=== PATIENT | male | born 1960 | race Caucasian/White ===

== ENCOUNTER 2024-07-28 14:32 | Emergency (ER) | payer OTHER, SELFPAY ==
[2024-07-28] VITALS (9 sets, daily range): BP systolic 103–134; BP diastolic 63–76; PULSE 54–57; RESP 15–22; TEMP 36.4; O2SAT 98–100; BMI 21.9
--- NOTE | 2024-07-28 14:49 | DI.RAD.S_ITS ---
PROCEDURE: XR CHEST 1V INDICATIONS: chest pain TECHNIQUE: One view of the chest was acquired. COMPARISON: None. FINDINGS: Surgical changes and devices: Post median sternotomy and CABG. Lungs and pleura: Lungs are clear. No pleural effusions or pneumothorax. Mediastinum: Mediastinal contours appear normal. Heart size is normal. Bones and chest wall: No suspicious bony lesions. Overlying soft tissues appear unremarkable. IMPRESSION: No acute cardiopulmonary abnormality is seen. Dictated by: Augustine Chau M.D. on 07/28/2024 at 15:27 Approved by: Augustine Chau M.D. on 07/28/2024 at 15:29
--- NOTE | 2024-07-28 14:50 | EKG_ITS ---
[address] [address] Test Date: 2024-07-28 Pat Name: Ryan Britton Department: Room: Gender: Male [employer] Runner: PHILIP : 1960 Requested By: Order Number: [id number] Reading MD: Param Mccall Measurements Intervals [place] Rate: 58 P: 47 NE: 166 QRS: -20 QRSD: 100 T: 24 QT: 408 QTc: 400 Interpretive Statements Sinus bradycardia Minimal voltage criteria for LVH, may be normal variant ( [place] product ) Electronically Signed On 07-29-2024 9:26:20 PST by Param Mcclal
[2024-07-28 15:07] LABS: Add Manual Diff / Slide Review NO; Basophils Absolute Auto 0 /uL (0-100); Basophils Percent Auto 0.2 % (0-2); Eosinophils Absolute Auto 0 /uL (0-450); Eosinophils Percent Auto 0.3 % (2-4); Hematocrit 43.4 % (41-53); Hemoglobin 14.2 g/dL (13.5-17.5); Lymphocytes Absolute Auto 900 /uL (1100-4500); Lymphocytes Percent Auto 12.9 % (25-40); Mean Corpuscular HGB Conc 32.6 % (30-36); Mean Corpuscular Hemoglobin 28.9 PG (26-34); Mean Corpuscular Volume 88.6 fL (80-100); Monocytes Absolute Auto 300 /uL (0-900); Monocytes Percent Auto 4.4 % (3-14); Neutrophils Absolute Auto 6000 /uL (1500-7000); Neutrophils Percent Auto 82.2 % (50-75); Platelet Count 178 X10^3/uL (150-400); Red Blood Cell Count 4.89 X10^6/uL (4.5-5.9); Red Cell Distribution Width 13.7 % (11.6-14.8); White Blood Cell Count 7.3 X10^3/uL (4.5-11.0)
[2024-07-28 15:14] LABS: INR 0.9 (0.9-1.3); Prothrombin Time 10.6 SECONDS (9.4-12.5)
[2024-07-28 15:17] LABS: PTT Partial Thromboplastin Tim 29 SECONDS (25.1-36.5)
[2024-07-28 15:18] LABS: Alanine Aminotransferase 18 IU/L (<50); Albumin 4.6 g/dL (3.5-5.0); Albumin Globulin Ratio 1.8 (1.0-2.8); Alkaline Phosphatase 57 U/L (38-126); Aspartate Aminotransferase 32 IU/L (17-59); BUN Creatinine Ratio 18.1 (6-22); Bilirubin Total 0.5 mg/dL (0.2-1.3); Blood Urea Nitrogen 31 mg/dL (9-20); Calcium 9.2 mg/dL (8.4-10.2); Carbon Dioxide 27 mmol/L (22-32); Chloride 104 mmol/L (98-107); Creatine Kinase 113 U/L (55-170); Estimated Glomerular Filt Rate 45 mL/min (>60); Globulin 2.5 g/dL (1.7-4.1); Glucose 94 mg/dL (80-110); HEMOLYSIS < 15 (0-50); Lipase 241 U/L (23-300); Magnesium 2.2 mg/dL (1.6-2.3); Potassium 4.6 mmol/L (3.4-5.1); Sodium 137 mmol/L (137-145); Total Protein 7.1 g/dL (6.3-8.2)
[2024-07-28 15:30] LABS: NT-proBNP (BNP-Adult 18+) 188 pg/mL (<125); Troponin I < 0.012 ng/mL (0.01-0.034)
--- NOTE | 2024-07-28 16:58 | EKG_ITS ---
[address] [address] Test Date: 2024-07-28 Pat Name: Ryan Neskowin Department: 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
[2024-07-28 17:34] LABS: Troponin I < 0.012 ng/mL (0.01-0.034)
--- NOTE | 2024-07-28 18:01 | ED.ARRPALP ---
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 Patient states he has had palpitations on and off in the past but has had them more frequently in the last several days describes it as a flutter. States sometimes when it occurs he has a little bit of chest pressure just site and in her left arm. He denies any fevers or chills, no cold cough or congestion. Denies any chest pain or pressure currently. No shortness of breath. Denies any diaphoresis. No nausea or vomiting. No swelling of extremities. No issues with bowel movements or urination. He does note his left arm sometimes has discomfort where his prior fistula was not placed. Patient does follow up with Cardiology in [place] where he lives he is on mycophenolate, aspirin, losartan, metoprolol, rosuvastatin, MiraLax and recently started alendronate 2 weeks ago. States he has been taking all his medications regularly. He was visiting the area until September. Notes that he had an allergy to heparin would cause an itch so they would use alternatives to heparin when he was having dialysis. No tobacco, occasional alcohol, no recreational drugs. [facility] in [place] is where patient receives his care. Related Data Allergies Allergy/AdvReac Type Severity Reaction Status Date / Time heparin AdvReac Verified 07/28/24 14:44 Review of Systems Review of Systems ROS Unobtainable: All systems reviewed & are unremarkable except as noted in HPI and below Patient History Social History Smoking Status: Never smoker Smoking Status: Never smoker alcohol intake frequency: other Substance Use Type: does not use Exam Narrative Exam Narrative: GENERAL: Alert and oriented x three, well-appearing male in mild distress HEENT: Head normocephalic, atraumatic, EOMI, pupils reactive, face symmetric, moist mucous membranes NECK: Supple, full range of motion CARDIOVASCULAR: Regular rate and rhythm without murmurs, rubs or gallops. No edema bilateral upper or lower extremities. RESPIRATORY: Breath sounds equal bilaterally, no wheezes rales or rhonchi. ABDOMEN: Soft, nontender. Normoactive bowel sounds all 4 quadrants. No guarding or rebound, rigidity, no mass : No CVA tenderness EXTREMITIES: Normal range of motion, no clubbing or edema. Neurovascularly intact NEUROLOGICAL: Cranial nerves II through XII grossly intact. Moving all extremities SKIN: Warm, dry, no petechiae, no rashes or lesions. Initial Vital Signs Initial Vital Signs: Vital Signs Temperature 97.5 F L 07/28/24 14:44 Pulse Rate 57 L 07/28/24 14:44 Respiratory Rate 18 07/28/24 14:44 Blood Pressure 134/76 07/28/24 14:44 Pulse Oximetry 100 07/28/24 14:44 Oxygen Delivery Method Room Air 07/28/24 14:44 Course Orders Ordered: Discontinued Medications Aspirin (Aspirin 81 Mg Chew Tab) 324 mg PO NOW ONE Stop: 07/28/24 14:50 Last Admin: 07/28/24 18:40 Dose: Not Given Documented By: SUNITHA Vital Signs Vital signs: Vital Signs - 8 hr 07/28/24 14:44 07/28/24 15:31 07/28/24 15:32 Temperature 97.5 F L Pulse Rate 57 L 55 L Respiratory Rate 18 22 Blood Pressure 134/76 112/64 Pulse Oximetry 100 99 Oxygen Delivery Method Room Air 07/28/24 15:32 07/28/24 16:00 07/28/24 16:00 Temperature Pulse Rate 54 L 57 L Respiratory Rate 20 15 Blood Pressure 109/65 Pulse Oximetry 100 99 Oxygen Delivery Method 07/28/24 16:30 07/28/24 16:30 Temperature Pulse Rate 56 L Respiratory Rate 17 Blood Pressure 103/63 Pulse Oximetry 99 Oxygen Delivery Method Room Air MDM - Arrhythmia/Palpitations Lab Data 07/28/24 14:55 07/28/24 14:55 Labs: Lab Results 07/28/24 07/28/24 Range/Units 14:55 16:55 WBC 7.3 (4.5-11.0) X10^3/uL RBC 4.89 (4.5-5.9) X10^6/uL Hgb 14.2 (13.5-17.5) g/dL Hct 43.4 (41-53) % MCV 88.6 (80-100) fL MCH 28.9 (26-34) PG MCHC 32.6 (30-36) % RDW 13.7 (11.6-14.8) % Plt Count 178 (150-400) X10^3/uL Neut % (Auto) 82.2 H (50-75) % Lymph % (Auto) 12.9 L (25-40) % Swisher % (Auto) 4.4 (3-14) % Eos % (Auto) 0.3 L (2-4) % Baso % (Auto) 0.2 (0-2) % Neut # (Auto) 6000 (3704-1070) /uL Lymph # (Auto) 900 L (3076-2968) /uL Swisher # (Auto) 300 (0-900) /uL Eos # (Auto) 0 (0-450) /uL Baso # (Auto) 0 (0-100) /uL PT 10.6 (9.4-12.5) SECONDS INR 0.9 (0.9-1.3) APTT 29 (25.1-36.5) SECONDS Sodium 137 (137-145) mmol/L Potassium 4.6 (3.4-5.1) mmol/L Chloride 104 (98-107) mmol/L Carbon Dioxide 27 (22-32) mmol/L BUN 31 H (9-20) mg/dL Creatinine 1.71 H (0.66-1.25) mg/dL Estimated GFR 45 L (>60) mL/min BUN/Creatinine Ratio 18.1 (6-22) Glucose 94 (80-110) mg/dL Calcium 9.2 (8.4-10.2) mg/dL Magnesium 2.2 (1.6-2.3) mg/dL Total Bilirubin 0.5 (0.2-1.3) mg/dL AST 32 (17-59) IU/L ALT 18 (<50) IU/L Alkaline Phosphatase 57 (38-126) U/L Total Creatine Kinase 113 (55-170) U/L Troponin I < 0.012 < 0.012 (0.01-0.034) ng/mL NT-Pro-B Natriuret Pep 188 H (<125) pg/mL Total Protein 7.1 (6.3-8.2) g/dL Albumin 4.6 (3.5-5.0) g/dL Globulin 2.5 (1.7-4.1) g/dL Albumin/Globulin Ratio 1.8 (1.0-2.8) Lipase 241 (23-300) U/L Imaging Data Chest x-ray: Radiologist's Impresson: [address] [address] XRay Report Signed Patient: Ryan Britton MR#: [id number] : 1960 Acct:[id number] Age/Sex: 64 / M Date of Service: 07/28/24 Loc: ED Accession Number: [id number] Procedure: XR chest 1V Ordering Provider: Lyly Faustin D.O. PROCEDURE: XR CHEST 1V INDICATIONS: chest pain TECHNIQUE: One view of the chest was acquired. COMPARISON: None. FINDINGS: Surgical changes and devices: Post median sternotomy and CABG. Lungs and pleura: Lungs are clear. No pleural effusions or pneumothorax. Mediastinum: Mediastinal contours appear normal. Heart size is normal. Bones and chest wall: No suspicious bony lesions. Overlying soft tissues appear unremarkable. IMPRESSION: No acute cardiopulmonary abnormality is seen. Dictated by: Augustine Chau M.D. on 07/28/2024 at 15:27 ECG Data Attestation: I personally reviewed and interpreted this ECG as follows: Interpretation: EKG 1. Shows sinus bradycardia rate of 58 VT 166 QRS of 100 QTC of 400, no acute ST elevation or depression noted. EKG 2. Shows sinus bradycardia rate of 56 VT 168 QRS of 100 QTC of 393, no acute ST elevation appreciated appears similar to prior. MDM Narrative Medical decision making narrative: 64-year-old male with complaint of palpitations for 1 week more often in the evening does note some pain radiates down left arm history of kidney transplant 30+ years ago and triple bypass surgery 2 years prior. Visiting from [place]. Patient notes palpitations that he has had on and off for some time but has been more frequent lately. Patient states his creatinine is within his normal baseline his BUN is little bit elevated he does note he has not been hydrating as much as he normally does. He did start alendronate recently but has not had no other acute changes to his medications. Patient is currently asymptomatic. EKG shows sinus bradycardia on both with rates 58 and [address] changes. Chest x-ray shows no acute change Labs show white count of 7.3 hemoglobin of 14 platelets of 178 predominance of neutrophils. Coags are negative, creatinine is 1.71 with a BUN of 31 otherwise appropriate electrolytes, glucose is 94 calcium is 9.2 with a Mag 2.2 potassium of 4.6, troponins less than 0.012 and repeat troponin is less than 0.012 with a BNP of 188. Discussed with patient does have cardiac risk factors but symptoms seem most correlated to palpitations. We will have patient follow up with Cardiology for Holter monitor or ZIO patch we will give contact as he was here until September. Discussed return precautions patient is to have a low threshold to return. Discharge Plan Departure Patient Disposition: Home Clinical Impression: Palpitations Instructions: DI for Palpitations Activity Restrictions/Additional Instructions: Please follow up with Cardiology for rechecked, contacts included below. I think he would benefit from a Holter monitor or ZIO patch. You can call and discuss with your cardiology team in [place] as well. Continue your home medications as prescribed. Please return for recurrent symptoms, persistent palpitations any lightheadedness or passing out, new chest pain or shortness of breath, nausea or vomiting, diaphoresis or sweatiness, new swelling of your extremities or other new or concerning changes. Referrals: Byron Perdomo MD [Physician] - Miscellaneous,MD Rickie [Primary Care Provider] - Stand Alone Forms: Patient Portal/API/Survey
== END 2024-07-28 18:50 | disposition home or self-care (01) ==
PROVIDERS: Emergency Medicine; Emergency Provider Emergency Medicine
DX: R00.2 Palpitations (principal); R07.9 Chest pain, unspecified; R00.1 Bradycardia, unspecified
CPT/HCPCS: 36415; 71045; 80053; 82550; 83690; 83735; 83880; 84484; 85025; 85610; 85730; 93005; 99284